=== PATIENT | male | born 1995 | race Two or more races ===

== ENCOUNTER 2024-08-22 21:29 | Outpatient (CLI) | payer OTHER, SELFPAY | END 2024-08-22 21:30 | disposition home or self-care (01) | LOC: AMB 08-23 11:56 | PROVIDERS: Visit Provider Family Medicine | DX: S39.92XA Unspecified injury of lower back, initial encounter (principal); V40.0XXA Car driver injured in collision with pedestrian or animal in nontraffic accident, initial encounter; Y92.411 Interstate highway as the place of occurrence of the external cause | CPT/HCPCS: A0425; A0433 ==